=== PATIENT | male | born 2000 | race Caucasian/White ===

== ENCOUNTER 2019-05-31 17:39 | Emergency (ER) | payer MEDICAID, SELFPAY ==
[2019-05-31 17:45] VITALS: BP 134/89; PULSE 86; RESP 18; TEMP 37; O2SAT 99
--- NOTE | 2019-05-31 18:56 | W.ED.GENAD ---
Discharge Plan Disposition Patient Disposition: HOME Discharge Details Chief Complaint: Laceration Clinical Impression: Laceration of hand, right Primary Care Provider: Sarah Atkins ED Provider: Isac Anton Home Meds and New Rx's Prescriptions: New cephalexin [Keflex] 500 mg capsule 500 mg PO TID Qty: 14 RF: 0 Discontinued sulfamethoxazole-trimethoprim [Bactrim DS] 1 EACH tablet 1 ea PO BID Qty: 19 RF: 0 Discharge Instructions Instructions: Laceration (ED) Additional Instructions: Your sutures removed in 12 to 14 days. Keep wound protected and change sterile dressing daily. Monitor for signs of infection. Return to the emergency department for any worsening or new concerning symptoms. Referrals: Sarah Atkins [Primary Care Provider] - Discharge Data Discharge Date/Time-TO BE ENTERED AT DEPARTURE: 05/31/19 19:30 Medical Decision Making 18-year-old male here with laceration to his right hand base of fifth digit extending into fourth webspace. Neurovascular intact distally including two-point discrimination. Wound anesthetized with bupivacaine 0.5% and repaired with primary closure, #9 simple interrupted sutures placed with nylon 4-0. Bacitracin sterile dressing applied. Outside hospital record was accessed and tetanus up-to-date - given 2010. Usual and customary discharge instructions were provided. HPI General Mode of arrival: ambulatory. Date/Time Provider Initiated Documentation: 05/31/19 17:52. Limitations to Documentation: no limitations. Information obtained by: patient. HPI Narrative: 18-year-old male here with laceration to his right hand. Laceration was sustained just prior to arrival. Patient notes he tripped and cut his hand on metal. Bleeding controlled. No modifiers. No other injury. No associated numbness. Related Data Home Medications Medication Instructions Recorded Confirmed cephalexin [Keflex] 500 mg PO TID #14 cap 05/31/19 Previous Rx's Medication Instructions Recorded cephalexin [Keflex] 500 mg PO TID #14 cap 05/31/19 Allergies Allergy/AdvReac Type Severity Reaction Status Date / Time No Known Allergies Allergy Unverified 07/10/16 11:50 General Stated Complaint: Laceration SACHI: 3 Review of Systems Integumentary/Breasts Reports as per HPI Neurologic Reports as per HPI [facility] Social History Smoking/Tobacco Use Status: Current every day Tobacco Type: cigarettes Alcohol Intake: current Alcohol Intake frequency: a few times a week Drug use: Never Substance use type: does not use Do you feel safe at home: Yes Do you feel safe in your relationship?: Yes Exam Const General: cooperative and no acute distress Cardio Rate: regular rate Rhythm: regular rhythm Pulses: radial pulses present on the right 2+ Skin Trauma: laceration (rt hand base of fifth digit extends to 4th webspace 5cm jagged) Neuro General: alert and tone normal Extrem Right upper extremity: hand Details: normal capillary refill, neuromotor exam normal, neurosensory exam normal, normal ROM of fingers and laceration (as noted above) Course Vital Signs Temperature 37.0 C 05/31/19 17:45 Pulse 86 05/31/19 17:45 Respiratory Rate 18 05/31/19 17:45 Blood Pressure 134/89 05/31/19 17:45 Pulse Oximetry 99 05/31/19 17:45 Temperature 37.0 C 05/31/19 17:45 Temperature Source Tympanic 05/31/19 17:45 Pulse 86 05/31/19 17:45 Respiratory Rate 18 05/31/19 17:45 Respiratory Effort Non-Labored 05/31/19 17:48 Blood Pressure 134/89 05/31/19 17:45 Pulse Oximetry 99 05/31/19 17:45 Oxygen Delivery Method Room Air 05/31/19 17:45 Oxygen Flow Rate 0 05/31/19 17:45 Pain Level 7 05/31/19 17:45 Procedures Laceration Laceration 1: Site: hand Side (If applicable): right Size (cm): 5 Description: irregular Depth: simple, single layer Local Anesthetic: Bupivicaine 0.5% Amount of anesthesia used (mL): 2 Pre-repair: wound explored, irrigated extensively and deep structures intact Skin layer closed with: nylon Size (cm): 4-0 and 5-0 Number of sutures: 9
[2019-05-31 19:30] VITALS: BP 134/89; PULSE 86; RESP 18; O2SAT 99
== END 2019-05-31 19:30 | disposition home or self-care (01) ==
PROVIDERS: Emergency Provider Student in an Organized Health Care Education/Training Program; PCP Nurse Practitioner Family
DX: S61.411A Laceration without foreign body of right hand, initial encounter (principal); W26.8XXA Contact with other sharp object(s), not elsewhere classified, initial encounter
CPT/HCPCS: 12001

== ENCOUNTER 2021-03-13 15:12 | Emergency (ER) | payer MEDICAID, SELFPAY ==
[2021-03-13 15:16] VITALS: BP 133/56; PULSE 88; RESP 16; TEMP 36.2; O2SAT 100
--- NOTE | 2021-03-13 15:38 | ED.GENADUL_ITS ---
Discharge Plan Disposition Patient Disposition: HOME Condition: Stable Discharge Details Clinical Impression: Cellulitis of lip Primary Care Provider: None,None ED Provider: Madonna Chapa Home Meds and New Rx's Prescriptions: New cephalexin 500 mg capsule 500 mg PO BID 7 Days Qty: 14 RF: 0 Discharge Instructions Instructions: Cellulitis (ED) Additional Instructions: Take the antibiotics as directed twice daily. A prescription was sent to the pharmacy we have on file for 7 days of cephalexin twice daily. Follow-up with primary care provider in 3 to 5 days return to the ED for any worsening swelling, drainage, trouble swallowing or sore throat. Take Tylenol or ibuprofen every 4-6 hours as needed for pain and swelling. He may apply ice wash hands do not touch area wash daily with soap and Discharge Data Discharge Date/Time-TO BE ENTERED AT DEPARTURE: 03/13/21 15:47 Medical Decision Making At this time patient was given cephalexin for a possible cellulitis. Differential diagnosis includes but not limited to herpes lesion, impetigo, insect bite, allergic reaction. HPI General Mode of arrival: ambulatory . Date/Time Provider Initiated Documentation: 03/13/21 15:31 . Limitations to Documentation: no limitations . Information obtained by: patient . HPI Narrative: 20-year-old male presents to ER with chief complaint of right lower lip lesion and swelling swelling began this morning. He denies any fever chills no trismus. No drainage. He is a smoker. He has no contact with similar lesion. No sore throat no body aches no fever denies any other associated symptoms. Related Data Home Medications Medication Instructions Recorded Confirmed cephalexin 500 mg PO BID 7 Days #14 cap 03/13/21 Previous Rx's Medication Instructions Recorded cephalexin 500 mg PO BID 7 Days #14 cap 03/13/21 Allergies Allergy/AdvReac Type Severity Reaction Status Date / Time No Known Allergies Allergy Unverified 07/10/16 11:50 General Stated Complaint: RashLesion SACHI: 4 Review of Systems All systems reviewed & are unremarkable except as noted in HPI and below ENT Ears, Nose, Mouth, and Throat: Denies dental pain, Denies dysphagia, Denies hoarseness, Reports lip swelling (Right sided lip swelling and a tender lesion), Denies neck pain, Denies odynophagia, Denies sore throat and Denies tongue swelling Gastrointestinal Gastrointestinal: Denies dysphagia and Denies odynophagia Musculoskeletal Musculoskeletal: Denies neck pain Allergic/Immunologic Allergic/Immunologic: Reports lip swelling (Right sided lip swelling and a tender lesion) and Denies tongue swelling [facility] Social History Smoking/Tobacco Use Status: Current every day Tobacco Type: cigarettes Smoking risk assessment performed?: Yes Alcohol Intake: current Alcohol Intake frequency: a few times a week Drug use: Never Substance use type: does not use Do you feel safe at home: Yes Do you feel safe in your relationship?: Yes Exam [facility] Head images: 1. Honey crusted colored lesion 2. Swelling right side lower lip Mouth: oral mucosae normal, moist mucous membranes, no drooling, lip abnormal right lower swelling and lesion, no muffled voice and no trismus Teeth and gingiva: dentition normal Throat: posterior oropharynx normal Course Vital Signs Vital signs: Vital Signs Temperature 36.2 C L 03/13/21 15:16 Pulse 88 03/13/21 15:16 Respiratory Rate 16 03/13/21 15:16 Blood Pressure 133/56 L 03/13/21 15:16 Pulse Oximetry 100 03/13/21 15:16 Temperature 36.2 C L 03/13/21 15:16 Temperature Source Skin 03/13/21 15:16 Pulse 88 03/13/21 15:16 Respiratory Rate 16 03/13/21 15:16 Blood Pressure 133/56 L 03/13/21 15:16 Blood Pressure Position Sitting 03/13/21 15:16 Pulse Oximetry 100 03/13/21 15:16 Oxygen Delivery Method Room Air 03/13/21 15:16 Oxygen Flow Rate 0 03/13/21 15:16 Pain Level 4 03/13/21 15:16
[2021-03-13] MEDS: Cephalexin 500 MG CAP, 4 CAPS/BTL PO (15:43)
[2021-03-13] MEDS: Cephalexin 500 MG CAP PO (15:43)
--- NOTE | 2021-03-13 15:44 | NUR.NOTE ---
Nursing Note: Referral given to Care Management to establish care w/PCP with routine follow up. Kirti Chadwick
== END 2021-03-13 15:47 | disposition home or self-care (01) ==
PROVIDERS: Emergency Provider Registered Nurse Emergency
DX: K13.0 Diseases of lips (principal)
CPT/HCPCS: 99283

== ENCOUNTER 2022-05-07 20:19 | Emergency (ER) | payer MEDICAID, SELFPAY ==
--- NOTE | 2022-05-07 20:22 | ED.GENADUL_ITS ---
Discharge Plan Disposition Patient Disposition: HOME Condition: Good Discharge Details Clinical Impression: Corneal abrasion, left Primary Care Provider: None,None ED Provider: Chandler Villa Discharge Instructions Instructions: Corneal Abrasion (ED) Additional Instructions: No foreign body visualized, but linear corneal abrasion over your pupil identified. Tetanus is updated today. Apply erythromycin ointment to the lower lid 4 times a day. Follow-up with [facility], call Monday for appointment. Return to ED for increased eye pain, change in vision, worsening headache. Referrals: [facility] [Outside] - 2 days Medical Decision Making Patient presenting with left eye foreign body sensation. On exam here no obvious foreign body on direct visualization as well as slit-lamp examination. Upper lid everted and swiped in case foreign body stuck to underside of lid. Linear corneal abrasion noted medial aspect of the pupil. Tetanus updated. Erythromycin ointment applied and patient will be discharged home with same. Follow-up with [facility], call Monday for appointment. Return precautions provided. HPI General Mode of arrival: ambulatory . Date/Time Provider Initiated Documentation: 05/07/22 20:22 . Limitations to Documentation: no limitations . Information obtained by: patient and RN notes reviewed . HPI Narrative: Patient presents to ED with complaint of foreign body in left eye. Patient was out in his garage smoking a cigarette and wrapping up an extension cord when he felt something go in his eye. He has irrigated the eye and continues to have foreign body sensation. Has a little bit of blurriness in his vision on the left. Denies eye pain per se. He is not aware of what could have got into his eye. He has no other complaint. Related Data Allergies Allergy/AdvReac Type Severity Reaction Status Date / Time No Known Allergies Allergy Unverified 05/07/22 20:26 General SACHI: 4 Review of Systems Narrative: As documented in HPI otherwise negative as below. Const: no fever, chills, weakness Resp: no cough, SOB, pleuritic pain CV: no CP, diaphoresis, edema, syncope GI: no abdominal pain, nausea, vomiting, diarrhea Neuro: no headache, numbness, focal weakness, confusion PFSH All Active Problems (Updated 05/07/22 @ 21:05 by Chandler Villa MD) Corneal abrasion, left (Acute) Cellulitis of lip (Acute) Chlamydia contact (Acute) Medical History No significant past medical history Surgical History Hx of tonsillectomy Social History Smoking/Tobacco Use Status: Current every day Tobacco Type: cigarettes Smoking risk assessment performed?: Yes Alcohol Intake: current Alcohol Intake frequency: a few times a month Drug use: Never Substance use type: does not use Do you feel safe at home: Yes Do you feel safe in your relationship?: Yes Exam Narrative Exam Narrative: Const: WDWN male in NAD. HEENT: NC/AT. Normal facial exam. Eyes: Right eye normal. Left eye with mild conjunctival injection. No obvious foreign body visualized on routine exam. With slit lamp patient noted to have linear corneal abrasion medial aspect of the left pupil. Upper lid everted and no obvious foreign body but lid still swept for foreign body. Neck: Supple. Trachea midline. Lungs: Normal respiratory effort. Neuro: A+O x 3. Normal speech, mentation, gait. Cranial nerves II - XII grossly intact. No gross motor or sensory deficit. Ext: No C/C/E. Skin: Warm and dry without rash.
[2022-05-07 20:24] VITALS: BP 139/64; PULSE 80; RESP 12; TEMP 36.8; O2SAT 100
[2022-05-07] MEDS: Tetracaine 0.5% 4 ML BTL OP (21:11)
[2022-05-07] MEDS: Fluorescein STRIPS 100/BOX 1 MG OP (21:11)
[2022-05-07] MEDS: Erythromycin Ophth Oint 3.5 GM TUBE OS (21:42)
[2022-05-07 21:52] VITALS: BP 139/64; PULSE 80; RESP 12; TEMP 36.8; O2SAT 100
== END 2022-05-07 21:52 | disposition home or self-care (01) ==
PROVIDERS: Emergency Provider Emergency Medicine
DX: S05.02XA Injury of conjunctiva and corneal abrasion without foreign body, left eye, initial encounter (principal); X58.XXXA Exposure to other specified factors, initial encounter
CPT/HCPCS: 90471; 99283

== ENCOUNTER 2022-07-05 07:52 | Emergency (ER) | payer MEDICAID, SELFPAY ==
[2022-07-05 07:56] VITALS: BP 131/62; PULSE 71; RESP 16; TEMP 36.9; O2SAT 100
--- NOTE | 2022-07-05 12:53 | ED.GENADUL_ITS ---
Discharge Plan Disposition Patient Disposition: HOME Condition: Stable Discharge Details Clinical Impression: Cellulitis, Pustular rash Primary Care Provider: Unknown,Unknown ED Provider: Dianelys Rene Home Meds and New Rx's Prescriptions: New cephalexin 500 mg capsule 500 mg PO Q6H 7 Days Qty: 28 0RF mupirocin 2 % ointment 1 applic topical BID Qty: 22 0RF Discharge Instructions Instructions: Cellulitis (ED), Acute Rash (ED) Additional Instructions: Wash with warm soapy water twice a day Apply the ointment after washing Take ibuprofen and Tylenol as needed for pain Take the antibiotic as prescribed Yogurt daily while on antibiotic and return earlier should you have new or worsening complaint Discharge Data Discharge Date/Time-TO BE ENTERED AT DEPARTURE: 07/05/22 08:17 Medical Decision Making Patient appears well No evidence of systemic infection Placed on Keflex Return precautions discussed and patient expressed understanding Medical Records Medical records reviewed: Yes I reviewed the patient's medical records. Lab Data Lab results reviewed: Yes I reviewed the patient's lab results. ECG Data Prior ECG tracings: available for review HPI General Date/Time Provider Initiated Documentation: 07/05/22 08:07 . HPI Narrative: This 21-year-old male presents with rash to bilateral lower extremities. This started after having reported contact dermatitis from [place]. He states the redness has spread. He denies any fever or chills. He denies any chest pain or shortness of breath. Denies any dizziness or weakness. Related Data Home Medications Medication Instructions Recorded Confirmed cephalexin 500 mg capsule 500 mg PO Q6H 7 days #28 caps 07/05/22 mupirocin 2 % topical ointment 1 applic topical BID #22 grams 07/05/22 Previous Rx's Medication Instructions Recorded cephalexin 500 mg capsule 500 mg PO Q6H 7 days #28 caps 07/05/22 mupirocin 2 % topical ointment 1 applic topical BID #22 grams 07/05/22 Allergies Allergy/AdvReac Type Severity Reaction Status Date / Time No Known Allergies Allergy Unverified 07/05/22 08:01 General Stated Complaint: RashLesion SACHI: 4 Review of Systems All systems reviewed & are unremarkable except as noted in HPI and below PFSH All Active Problems (Updated 07/05/22 @ 08:13 by LUZ MARIA Sol) Cellulitis (Acute) Pustular rash (Acute) Cellulitis of lip (Acute) Chlamydia contact (Acute) Medical History No significant past medical history Surgical History Hx of tonsillectomy Social History Smoking/Tobacco Use Status: Current every day Tobacco Type: cigarettes Smoking risk assessment performed?: Yes Alcohol Intake: current Alcohol Intake frequency: a few times a month Drug use: Never Substance use type: does not use Do you feel safe at home: Yes Do you feel safe in your relationship?: Yes Exam Const General: cooperative, comfortable and no acute distress Extrem Other: Pustular rash noted to bilateral lower extremities, mild surrounding erythema Course Vital Signs Vital signs: Vital Signs Temperature 36.9 C 07/05/22 07:56 Pulse 71 07/05/22 07:56 Respiratory Rate 16 07/05/22 07:56 Blood Pressure 131/62 07/05/22 07:56 Pulse Oximetry 100 07/05/22 07:56 Temperature 36.9 C 07/05/22 07:56 Pulse 71 07/05/22 07:56 Respiratory Rate 16 07/05/22 07:56 Respiratory Effort 07/05/22 08:01 Blood Pressure 131/62 07/05/22 07:56 Pulse Oximetry 100 07/05/22 07:56 Pain Level 6 07/05/22 07:56
== END 2022-07-05 08:17 | disposition home or self-care (01) ==
PROVIDERS: Emergency Provider Physician Assistant
DX: L08.0 Pyoderma (principal); L03.115 Cellulitis of right lower limb; L03.116 Cellulitis of left lower limb; F17.210 Nicotine dependence, cigarettes, uncomplicated
CPT/HCPCS: 99283

== ENCOUNTER 2023-11-28 14:29 | Outpatient (REF) | payer MEDICAID, SELFPAY ==
[2023-11-29 14:48] LABS: GC Result Negative (Negative)
[2023-11-29 14:54] LABS: Chlamydia Result Positive (Negative)
== END 2023-11-28 14:30 | disposition home or self-care (01) ==
LOC: LBN 14:29
PROVIDERS: Visit Provider Nurse Practitioner Family
DX: R30.0 Dysuria (principal); Z11.3 Encounter for screening for infections with a predominantly sexual mode of transmission
CPT/HCPCS: 87491; 87591; 87086

== ENCOUNTER 2024-02-02 08:42 | Emergency (ER) | payer MEDICAID, SELFPAY ==
[2024-02-02 08:46] VITALS: BP 135/71; PULSE 88; RESP 16; TEMP 36.8; O2SAT 98
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
[2024-02-02 09:24] VITALS: PULSE 80; RESP 14; O2SAT 99
--- NOTE | 2024-02-02 09:25 | NUR.NOTE ---
Pt left arm washed with soap and water. Bacitracian applied per PA. Wound wrapped with telfa and gauze. CSM's in tact. Pt states bandage feels good. Nursing Note:
[2024-02-02] MEDS: Bacitracin 30 GM TUBE TP (09:28)
== END 2024-02-02 09:31 | disposition home or self-care (01) ==
LOC: ER 09:27
PROVIDERS: Emergency Provider Physician Assistant
DX: T22.212A Burn of second degree of left forearm, initial encounter (principal); T31.0 Burns involving less than 10% of body surface; X13.1XXA Other contact with steam and other hot vapors, initial encounter; Y93.89 Activity, other specified; F17.210 Nicotine dependence, cigarettes, uncomplicated
CPT/HCPCS: 16020; 99283

== ENCOUNTER 2024-07-13 01:57 | Emergency (ER) | payer MEDICAID, SELFPAY ==
[2024-07-13] VITALS (10 sets, daily range): BP systolic 113–121; BP diastolic 59–75; PULSE 64–79; RESP 6–18; TEMP 35.4; O2SAT 100
[2024-07-13] MEDS: Lactated Ringers 1,000 ML 1000 ML IV (02:08)
--- NOTE | 2024-07-13 02:10 | ED.GENADUL_ITS ---
Discharge Plan Disposition Patient Disposition: Home Condition: Good Discharge Details Chief Complaint: Nausea/Vomit/Diar Clinical Impression: Dehydration, Alcohol ingestion Primary Care Provider: Unknown,Unknown ED Provider: Wade Hubbard Home Meds and New Rx's Prescriptions: No Action No Known Home Meds Discharge Instructions Instructions: Dehydration, Adult ED Additional Instructions: At this time your laboratory workup shows no concerning abnormalities. Please drink plenty of fluids and stay well-hydrated. If you notice any worsening of your symptoms, or any new symptoms such as vomiting, diarrhea, fever, chills, shortness of breath, chest pain, numbness, weakness, or fainting , please return immediately to the emergency department for reevaluation. Please follow up with your primary care provider as soon as possible for reassessment and reevaluation. As always, it was a pleasure participating in your medical care today. HPI General Date/Time Provider Initiated Documentation: 07/13/24 02:00 . HPI Narrative: This is a 23-year-old male with no significant past medical history who presents today for evaluation of intoxication. Patient states that today starting this afternoon he drank 2 twisted teas and then 5 alcoholic Colleen iced tea beverages. He states that this evening while at his home with multiple other invited individuals he began to feel quite atypical. He had nausea and vomited a few times. He sat on his porch in his underwear wrapped up in a comforter for an hour, and continued to not feel well. He stated that he felt significantly more out of it than what he would normally feel like with that amount of alcohol consumed. He states that this is a fairly regular amount for him. Eventually called EMS, they evaluated him, gave him an IV fluid bolus, and brought him to the ER for further assessment. Currently he denies any abdominal pain chest pain or headache. He denies any falls or trauma. He denies any known drug ingestion. He states that there was cocaine at the [place] party that he saw other individuals using, but he did not partake in any since his son was there with him. He denies any other complaints at this time. No other modifying factors. Related Data Home Medications ?Medication ?Instructions ?Recorded ?Confirmed Unknown [No Known Home Meds] 07/13/24 07/13/24 Allergies Allergy/AdvReac Type Severity Reaction Status Date / Time No Known Allergies Allergy Unverified 07/13/24 02:02 General Stated Complaint: Nausea/Vomit/Diar SACHI: 3 Review of Systems All systems reviewed & are unremarkable except as noted in HPI and below Exam Narrative Exam Narrative: 1.Const: Well-nourished, Well-developed, appearing stated age 2.Eyes: PERRL, no conjunctival injection, and symmetrical lids. 3.ENT: Atraumatic external nose and ears. Dry MM. Neck: Symmetric, trachea midline, No thyromegaly. 4.CVS: +S1/S2, No murmurs or gallops. Peripheral pulses 2+ and equal in all extremities. Brisk capillary refill in all extremities. 5.RESP: Unlabored respiratory effort. Clear to auscultation bilaterally. No wheezes rales or rhonchi 6.GI: Soft, Nontender/Nondistended, No hepatosplenomegaly. No guarding or rebound. 7.MSK: Normocephalic/Atraumatic, Extremities w/o deformity or ttp No cyanosis or clubbing, Normal movement of all extremities 8.Skin: Warm, Dry. No rashes or lesions. 9.Neuro: patient relations liaison II-XII grossly intact. Sensation grossly intact, no focal neurologic deficits. 10.Psych: (AAO) x3. Appropriate mood and affect Course Vital Signs Vital signs: Vital Signs Pulse 73 07/13/24 01:56 Respiratory Rate 16 07/13/24 01:56 Blood Pressure 121/59 L 07/13/24 01:56 Pulse Oximetry 100 07/13/24 01:56 Temperature 35.4 C L 07/13/24 02:03 Temperature Source Oral 07/13/24 02:03 Pulse 73 07/13/24 02:01 Pulse 79 07/13/24 02:01 Respiratory Rate 9 L 07/13/24 02:01 Respiratory Effort Normal, Non-Labored 07/13/24 02:01 Blood Pressure 121/59 L 07/13/24 02:01 Blood Pressure Mean 71 07/13/24 02:01 Blood Pressure Position Sitting 07/13/24 01:56 Pulse Oximetry 100 07/13/24 01:56 Pain Level 0 07/13/24 01:56 Medical Decision Making This is a 23-year-old male with no significant past medical history who presents today for evaluation of intoxication. Patient states that today starting this afternoon he drank 2 twisted teas and then 5 alcoholic Colleen iced tea beverages. He states that this evening while at his home with multiple other invited individuals he began to feel quite atypical. He had nausea and vomited a few times. He sat on his porch in his underwear wrapped up in a comforter for an hour, and continued to not feel well. He stated that he felt significantly more out of it than what he would normally feel like with that amount of alcohol consumed. He states that this is a fairly regular amount for him. Eventually called EMS, they evaluated him, gave him an IV fluid bolus, and brought him to the ER for further assessment. Currently he denies any abdominal pain chest pain or headache. He denies any falls or trauma. He denies any known drug ingestion. He states that there was cocaine at the [place] that he saw other individuals using, but he did not partake in any since his son was there with him. He denies any other complaints at this time. No other modifying factors. Exam demonstrates a well-appearing male, dry mucous membranes, no neurologic deficits or other abnormalities. Differential includes intoxication, ingestion of an illicit substance whether accidentally or unknown, or dehydration versus viral etiology causing gastroenteritis. Symptoms inconsistent with meningitis. No clinical evidence to suggest stroke. Patient otherwise notably stable. We will rehydrate with a liter of lactated Ringer's, monitor closely check drug screen labs electrolytes and reassess. 3:30 AM Patient feels much better, he feels well and would like to go home. Laboratory workup shows no white count bandemia or left shift, minimal elevation of his anion gap, alcohol level 151. Despite this patient does appear notably clinically sober. The patient is able to speak clearly. There is no demonstration of any slurring of speech. There is evidence of clear decision making capacity. Patient is able to ambulate well without any difficulty. There are no signs of ataxia or stumbling motions. Patient has received fluid bolus. Pending UDS still. Patient is requesting to go home. I do feel that the patient is notably stable clinically at this time, and we will allow him to go home if he is able to find someone to give him a ride home at this point. Symptoms appear most consistent with mild intoxication with potential dehydration causing his previous symptomatology. Discussed red flags for which to return. I have extensively reviewed the treatment plan and discharge instructions with the patient. I have addressed all patient concerns at this time. The patient was made aware of what symptoms to monitor for that would warrant a return to the emergency department. Discussed the plan with the patient, they demonstrate verbal understanding and agreement with our assessment and plan at this time. The documentation in this chart was dictated using [employer] dictation software. Please excuse any dictation errors. Quality:SDOH Health Related Social Needs: No Data to Display PFSH All Active Problems (Updated 07/13/24 @ 03:04 by Wade Hubbard DO) Alcohol ingestion (Acute) Dehydration (Acute) Cellulitis of lip (Acute) Chlamydia contact (Acute) Medical History No significant past medical history Surgical History Hx of tonsillectomy Social History Smoking/Tobacco Use Status: Current every day Tobacco Type: cigarettes Smoking risk assessment performed?: Yes Alcohol Intake: current Alcohol Intake frequency: a few times a week Alcohol type: beer and hard liquor Drug use: Never Substance use type: does not use Housing: house Do you feel safe at home: Yes Do you feel safe in your relationship?: Yes PAWSS Have you Been Recently Intoxicated or Drunk Within the Last 30 days?: Yes Have you Ever Experienced Previous Episodes of Alcohol Withdrawal?: No Have you ever Experienced Withdrawal Seizures?: No Have you ever Experienced Delirium Tremens(DT)s?: No Have you ever undergone Alcohol Rehabilitation Treatment (i.e, inpt ot outpatient treatment programs)?: No Have you ever Experienced Blackouts?: Yes Have you ever Combined Alcohol with other Downers within the last 90 days?: No Have you ever Combined Alcohol with any other Substance of Abuse during the last 90 days?: No Positive Blood Alcohol level on Presentation? [PCS.BAL]: Unable to Obtain Evidence of Increased Autonomic Activity (i.e. HR>120, tremor, sweating, agitation, nausea)?: No Result: 2
[2024-07-13 02:14] LABS: Abs Immature Grans 0.03 10^3/uL (0.0-0.06); Absolute Basophil Count 0.07 10^3/uL (0.0-0.2); Absolute Eosinophil Count 0.14 10^3/uL (0.0-0.7); Absolute Lymphocyte Count 2.29 10^3/uL (1.2-3.4); Absolute Monocyte Count 0.59 10^3/uL (0.1-0.8); Absolute Neutrophil Count 3.43 10^3/uL (1.2-6.7); Basophils % 1.1 %; Eosinophils % 2.1 %; HCT 40.2 % (40.0-50.0); HGB 13.5 g/dL (13.5-17.5); Immature Grans % 0.5 %; MCH 30.3 pg (27.0-33.0); MCHC 33.6 % (32.0-36.0); MCV 90 fL (80-95); MPV 9.3 fL (8.0-11.0); Neutrophils % 52.3 %; Platelet Count 311 10^3/uL (130-400); RBC 4.45 10^6/uL (4.36-5.78); RDW 12.6 % (11.8-14.1); RDW-SD 41.8 fL; WBC 6.55 10^3/uL (4.4-10.8)
--- OUTSIDE RECORDS SUMMARY | 2024-07-13 02:19 | XMS_ITS | Encounter Summary ---
Author Organization [facility] Address [address] [place] [address] Care Team Providers Care Bull Bucker Name Role Phone Unavailable Primary Care Provider Unavailabl e Encounter Details Date Type Department Care Team (Late st Contact Info) Description 11/28/2023 Lab Requisition [facility] [address] [place] [address] Outr Resulting Lab, Provider Social History Tobacco Use Types Packs/Day Years Used Date Smoking Tobacco: Never Assessed Sex and Gender Information Value Date Recorded Sex Assigned at Not on file Gender Identity Not on file Sexual Orientation Not on file documented as of this encounter Plan of Treatment Not on file documented as of this encounter Procedures Procedure Name Priority Date/Time Associated Diagnosis Comments CHLAMYDIA/N. GONORRHOEAE AMPLIFIED NUCLEIC ACID Routine 11/28/2023 11:30 EST documented in this encounter Results * (ABNORMAL) CHLAMYDIA/N. GONORRHOEAE AMPLIFIED RNA (11/28/2023 11:30 EST) Neisseria gonorrhoeae Result Negative Negative 11/29/2023 14:43 EST [facility] Chlamydia trachomatis Result Positive(A) Negative 11/29/2023 14:43 EST [facility] Urine URINE / Unknown 11/28/2023 1 1:30 EST 11/28/2023 22:34 EST Provider Outr Resulting Lab MICROBIOLOGY - GENERAL ORDERABLES [facility] [address] [place] [address] documented in this encounter Visit Diagnoses Not on filedocumented in this encounter
--- OUTSIDE RECORDS SUMMARY | 2024-07-13 02:19 | XMS_ITS | Data Portability ---
Author Organization [place] [facility] [place] [address] Assessment No assessment recorded. Plan of Treatment Reminders Order Date Submit Date Provider Last Modified By Organization Details Last Modified Time Details Appointments Office Visit 40 2023 11:00A M Not available Not available Not available Lab culture, urine + sensitivi ty - Specimen collected in the office at [facility]. 2023 024 [facility] (Registration ), [address] [place] [address] [place], [address], 11/30/2023 10:44:45 urinalysi s, dipstick 2023 024 [facility], [address] [place] [address], [address], [place], [address], 11/28/2023 11:45:27 chlamydia + gonorrhea DNA panel, unspecifi ed specimen - Specimen collected in the office at [facility]. 2023 024 [facility] (Registration ), [address] [place] [address] [place], [address], 11/29/2023 14:58:14 Referral None recorded. Procedures None recorded. Surgeries None recorded. Imaging None recorded. Medication Orders None recorded. Patient TargetsNo targets recorded. Patient InstructionsNo instructions recorded. Reason for Referral None Reported. Results Created Date Observation Date Name Description Value Unit Range Abnormal Flag LastModifiedBy Organization Detail LastModifiedTime 11/28/19 24 11/29/2023 URINE CULTU RE urine culture Not Available [facility] (Registration ) [address] [place] [address] [address] [facility] [place], [address], 11/29/2023 11:09:46 11/28/19 24 11/29/2023 URINE CULTU RE urine culture colon ies/m L Not Available [facility] (Registration ) [address] [place] [address] [place], [address], 11/29/2023 11:09:46 11/28/19 24 11/29/2023 CHLAM YDIA/ GC AMPLI FIED RNA chlamydia result Positi ve negati ve abnormal Not Available [facility] (Registration ) [address] [place] [address] Dr [facility] [place], [address], 11/29/2023 14:57:22 11/28/19 24 11/29/2023 CHLAM YDIA/ GC AMPLI FIED RNA GC result Negati ve negati ve Not Available [facility] (Registration ) [address] [place] [address] [place], [address], 11/29/2023 14:57:22 11/28/19 24 11/30/2023 URINE CULTU RE urine culture Not Available [facility] (Registration ) [address] [place] [address] [place], [address], 11/30/2023 09:57:12 11/28/19 24 11/30/2023 URINE CULTU RE urine culture colon ies/m L Not Available [facility] (Registration ) [address] [place] [address] [place], [address], 11/30/2023 09:57:12 11/28/19 24 11/28/2023 urina lysis , dipst ick Leukocytes Trace Not Available [address], [place], [address], 11/28/2023 11:40:21 11/28/19 24 11/28/2023 urina lysis , dipst ick Nitrite negati ve Not Available [address], [place], [address], 11/28/2023 11:40:21 11/28/19 24 11/28/2023 urina lysis , dipst ick Urobilinogen .2 Not Available [facility] [address], [place], [address], 11/28/2023 11:40:21 11/28/19 24 11/28/2023 urina lysis , dipst ick Protein Negati ve Not Available [address], [place], [address], 11/28/2023 11:40:21 11/28/19 24 11/28/2023 urina lysis , dipst ick pH 6.0 Not Available [address], [place], [address], 11/28/2023 11:40:21 11/28/19 24 11/28/2023 urina lysis , dipst ick Blood Hemoly zed: Trace Not Available [address], [place], [address], 11/28/2023 11:40:21 11/28/19 24 11/28/2023 urina lysis , dipst ick Specific [place] 1.005 Not Available [address], [place], [address], 11/28/2023 11:40:21 11/28/19 24 11/28/2023 urina lysis , dipst ick Ketone Negati ve Not Available [address], [place], [address], 11/28/2023 11:40:21 11/28/19 24 11/28/2023 urina lysis , dipst ick Bilirubin Negati ve Not Available [address], [place], [address], 11/28/2023 11:40:21 11/28/19 24 11/28/2023 urina lysis , dipst ick Glucose Negati ve Not Available [address], [place], [address], 11/28/2023 11:40:21 11/28/19 24 11/28/2023 urina lysis , dipst ick Appearance Clear Not Available [address] [address], [place], [address], 11/28/2023 11:40:21 11/28/19 24 11/28/2023 urina lysis , dipst ick Color Pale Yellow Not Available [address], [place], [address], 11/28/2023 11:40:21 Result Notes None recorded. Problems Name Status Onset Date Resolution Date Notes Provider Name and Address Organization Details Recorded Time Amblyopia of right eye Active 2006 Problem Code: H53.001; Problem Code Type: ICD-10; Not Available [facility] 3 04:40:03 Nicotine dependence Active 201606/28/2017 - Comments only - Fer Roy MD - contemplativ e. dicussed possible buproprion as reports h/o ADHD as well. Problem Code: F17.200; Problem Code Type: ICD-10; Not Available [facility] 3 04:40:04 Contact dermatitis Active 201606/28/2017 - Comments only - Fer Roy MD - Due to periorbital area, I will use oral stearoid, 2 week course. A/w known poison kym expsoure, so I don't think heliotrope rash. Problem Code: L25.9; Problem Code Type: ICD-10; Not Available [facility] 3 04:40:04 Alcohol abuse Active 201606/28/2017 - Comments only - Fer Roy MD - recommended cutting down Problem Code: F10.10; Problem Code Type: ICD-10; Not Available [facility] 3 04:40:04 Herpesviral vesicular dermatitis Active 2022 Problem Code: B00.1; Problem Code Type: ICD-10; Not Available [facility] 3 04:40:04 Gastroenteriti s Completed 200106/28/2017 Not Available [facility] 3 04:40:04 Amblyopia Completed 200608/23/2023 Not Available [facility] 3 04:40:05 Strabismus Completed 200106/28/2017 Not Available [facility] 3 04:40:05 Chlamydial infection Active [address], [place], [address] [facility] 4 15:18:16 Notes:*Problem Name: Hx 2nd- hand Smoke *ICD-10 Codes: *Problem Status: inactive *Problem Name: Hx Bronchospasm *ICD-10 Codes: *Problem Status: inactive *Comments: *Note Date: 09/22/2000 *Problem Name: Hx Cellulitis-heel *ICD-10 Codes: *Problem Status: inactive *Comments: *Note Date: 07/07/2005 *Problem Name: Hx Conjunctivitis *ICD-10 Codes: *Problem Status: inactive *Comments: *Note Date: 04/05/2000 *Problem Name: Hx Kodak *ICD-10 Codes: *Problem Status: inactive *Problem Name: Hx Poison Kym *ICD-10 Codes: *Problem Status: inactive *Comments: *Note Date: 05/19/2005 *Problem Name: Hx Scarlet Fever *ICD-10 Codes: *Problem Status: inactive *Comments: *Note Date: 12/08/2002 *Problem Name: Otitis Media-r *ICD-10 Codes: *Problem Status: inactive *Comments: *Note Date: 05/19/2005 *Problem Name: Pneumonia/sinusiti *ICD-10 Codes: *Problem Status: inactive *Comments: *Note Date: 09/22/2000 *Problem Name: Hx 2nd-hand Smoke *ICD-10 Codes: *Problem Status: inactive *Comments: *Problem Code Type: CPT *Problem Name: Hx Bronchospasm *ICD-10 Codes: *Problem Status: inactive *Comments: *Problem Code Type: CPT *Note Date: 09/22/2000 *Problem Name: Hx Cellulitis-heel *ICD-10 Codes: *Problem Status: inactive *Comments: *Problem Code Type: CPT *Note Date: 07/07/2005 *Problem Name: Hx Conjunctivitis *ICD-10 Codes: *Problem Status: inactive *Comments: *Problem Code Type: CPT *Note Date: 04/05/2000 *Problem Name: Hx Kodak *ICD-10 Codes: *Problem Status: inactive *Comments: *Problem Code Type: CPT *Problem Name: Hx Poison Kym *ICD-10 Codes: *Problem Status: inactive *Comments: *Problem Code Type: CPT *Note Date: 05/19/2005 *Problem Name: Hx Scarlet Fever *ICD-10 Codes: *Problem Status: inactive *Comments: *Problem Code Type: CPT *Note Date: 12/08/2002 *Problem Name: Otitis Media-r *ICD-10 Codes: *Problem Status: inactive *Comments: *Problem Code Type: CPT *Note Date: 05/19/2005 *Problem Name: Pneumonia/sinusiti *ICD-10 Codes: *Problem Status: inactive *Comments: *Problem Code Type: CPT *Note Date: 09/22/2000 Problem Notes None recorded. Medical Equipment None Reported. Medications Name Sig Start Date Stop Date Status Note LastModified by Organization Details LastModified Time doxycycline hyclate 100 mg capsule TAKE ONE CAPSULE BY MOUTH TWICE A DAY FOR 7 DAYS active Not Available Not Available No t Available cetirizine 10 mg tablet 1 daily 07/20 completed Not Available Not Available Not Available valacyclovi r 1 gram tablet 1 tablet by mouth twice a day 2022 active Not Available Not Available Not Avai lable prednisone 20 mg tablet 2 tabs po daily for 1 week, then one po daily for 1 week 2016 active Not Available Not Available Not Avai lable Tenex 1 mg tablet 1TAB qd adhd 06/28 completed Not Available Not Available Not Available loratadine 10 mg tablet Take 1 tab by mouth daily for allergies 2016 active Not Available Not Available Not Avai lable Vitals Date Recorded Body height Body mass index (BMI) Body weight Respiratory rate Body temperature Oxygen saturation Oxygen saturation in Arterial blood by Pulse oximetry Heart rate Systolic blood pressure Diastolic blood pressure Provider Name and Address Organization Details Last Updated DateTime 168.5 cm 26.4 kg/m2 52056.7 4 g 18 /min 97.7 [degF] 98 % 98 % 92 /min 128 mm[Hg] 80 mm[Hg] Tonie Crawford MA [facility] 11:02:15 Social History Question Answer Notes LastModified by Organizat ion Details LastModified Time Tobacco Smoking Status Current Every Day Smoker Tonie Crawford MA [facility], [facility] 11/28/2023 11:01:01 What Was The Date Of Your Most Recent Tobacco Screening? 11/28/2023 rai Information not available 11/28/2023 Has Tobacco Cessation Counseling Been Provided? Yes rai Information not available 11/28/2023 Sex: Male Functional Status None recorded. Mental Status None recorded. Family History Relationship Description Onset Age of this Age Resolved Age Notes Notes:*Problem: Mother: Priscila Godinez ( 08/17/77) Father: Mike Godinez ( 09/25/23). Sisters: Roberto Yang ( 99), Thomas Godinez ( 06/22/00) Family History of: Migraines: yes - F Medical History No medical history recorded. Immunizations Vaccine Type Date Status Provider Name and Address Organization Details Recorded Time MMR 07/26/2004 completed Not Available [facility] 05:06:56 MMR 09/13/2000 completed Not Available [facility] 05:06:56 DTaP, unspecified formulation 01/20/2000 completed Not Available [facility] 10/06/2023 05:06:57 DTaP, unspecified formulation 07/26/2004 completed Not Available [facility] 10/06/2023 05:06:57 DTaP, unspecified formulation 09/21/2001 completed Not Available [facility] 10/06/2023 05:06:57 DTaP, unspecified formulation 1999 completed Not Available [facility] 10/06/2023 05:06:57 DTaP, unspecified formulation 1999 completed Not Available [facility] 10/06/2023 05:06:57 meningococcal ACWY, unspecified formulation 08/02/2011 completed Not Available [facility] 10/06/2023 05:06:58 Tdap 05/07/2022 completed Not Available [facility] 05:06:58 Tdap 08/02/2011 completed Not Available [facility] 05:06:58 Pneumococcal Conjugate, unspecified formulation 09/21/2001 completed Not Available [facility] 10/06/2023 05:06:58 Hib, unspecified formulation 01/20/2000 completed Not Available [facility] 10/06/2023 05:06:59 Hib, unspecified formulation 09/21/2001 completed Not Available [facility] 10/06/2023 05:06:59 Hib, unspecified formulation 1999 completed Not Available [facility] 10/06/2023 05:06:59 Hib, unspecified formulation 1999 completed Not Available [facility] 10/06/2023 05:06:59 varicella 09/13/2000 completed Not Available [facility] 05:07:00 varicella 09/21/2001 completed Not Available [facility] 05:07:01 Hep B, unspecified formulation 05/17/2000 completed Not Available [facility] 10/06/2023 05:07:01 Hep B, unspecified formulation 1999 completed Not Available [facility] 10/06/2023 05:07:02 Hep B, unspecified formulation 09/21/2001 completed Not Available [facility] 10/06/2023 05:07:02 influenza, unspecified formulation 12/26/2012 completed Not Available [facility] 10/06/2023 05:07:02 influenza, unspecified formulation 1999 completed Not Available [facility] 10/06/2023 05:07:02 influenza, unspecified formulation 09/27/2005 completed Not Available [facility] 10/06/2023 05:07:03 polio, unspecified formulation 07/26/2004 completed Not Available [facility] 10/06/2023 05:07:03 polio, unspecified formulation 09/13/2000 completed Not Available [facility] 10/06/2023 05:07:03 polio, unspecified formulation 1999 completed Not Available [facility] 10/06/2023 05:07:03 polio, unspecified formulation 1999 completed Not Available [facility] 10/06/2023 05:07:03 Past Encounters Encounter ID Performer Location Encounter Start Date Encounter Closed Date Diagnosis/Indication Diagnosis SNOMED-CT Code [id number] [address] [place] [address] 11/28/2023 09:33:18 11/28/2023 11:49:17 Venereal disease screening 969522827 Dysuria 80159721 Health Concerns Section Related Observation LastModified by Organization Detai ls LastModified Time None Recorded Concern Status LastModified by Organization Details LastModified Time None Recorded Advance Directives Directive None Recorded Payers Encounter Date Sequence Insurance Name Policy Number Policy Campos Covered Member ID Campos Member ID Guarantor Name 11/28/2023 1 [facility] (MEDICAID) Rivas Godinez [id number] Rivas Godinez Notes Date Note Type Note Provider Name and Address Organization Details Recorded Time 11/28/2023 text/html HPI Notes: Patie nt with onset of dysuria in the last 2 weeks, is not with every void, is noted approximately 70% of the time. He does note mild increase in urinary frequency. No flank pain. Today, mild nausea, but no vomiting. No penile discharge, no visible rashes or lesions to penis or perineal area. Last STI testing 3 years ago, has had 2 female partners since last testing. Has been with current partner approximately 1 month. She is having no symptoms. Patient is circumcised, practices only vaginal insertive intercourse (without using condoms), denies any anal insertive intercourse with partner. [address], [place], [address], [facility], [facility]. 11/28/2023 11:48:24
--- OUTSIDE RECORDS SUMMARY | 2024-07-13 02:19 | XMS_ITS | Referral Summary ---
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
--- OUTSIDE RECORDS SUMMARY | 2024-07-13 02:19 | XMS_ITS | Clinical Summary ---
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
[2024-07-13 02:36] LABS: ALT 45 U/L (16-63); AST 29 U/L (15-37); Albumin 4.1 g/dL (3.4-5.0); Alkaline Phosphatase 74 U/L (46-116); Anion Gap 12.8 mmol/L (3-11); BUN 7 mg/dL (7-18); CO2 23.2 mmol/L (21.0-32.0); CREATININE 0.9 mg/dL (0.70-1.30); Calcium 8.9 mg/dL (8.5-10.1); Chloride 107 mmol/L (98-107); ETHANOL BLOOD 151.4 mg/dL (<10); Estimated GFR 122.31 (mL/min/1.73m2); Glucose 140 mg/dL (74-106); Sodium 143 mmol/L (136-145); Total Protein 7.1 g/dL (6.4-8.2)
== END 2024-07-13 03:09 | disposition home or self-care (01) ==
PROVIDERS: Emergency Provider Student in an Organized Health Care Education/Training Program
DX: E86.0 Dehydration (principal); F10.99 Alcohol use, unspecified with unspecified alcohol-induced disorder
CPT/HCPCS: 36415; 80053; 96360; 99284; 80320; 85025

== ENCOUNTER 2025-03-18 15:59 | Outpatient (REF) | payer MEDICAID, SELFPAY ==
[2025-03-19 10:35] LABS: HIV-1/2 Ag & Ab Screen Negative (Negative)
[2025-03-19 12:13] LABS: Syphilis Serology (RPR) Negative (Negative)
== END 2025-03-18 16:00 | disposition home or self-care (01) ==
LOC: NCHCN 15:59
PROVIDERS: Visit Provider Student in an Organized Health Care Education/Training Program
DX: Z11.3 Encounter for screening for infections with a predominantly sexual mode of transmission (principal)
CPT/HCPCS: 87389; 86592